=== PATIENT | male | born 1965 | race African-American/Black ===

== ENCOUNTER 2020-02-27 12:06 | Outpatient (CLI) | payer MEDICARE ==
--- NOTE | 2020-02-27 14:13 | CT ---
CT ABDOMEN ANDPELVIS PERFORMED WITH CONTRAST ENHANCEMENT: 02/27/20 HISTORY: Patient with abdominal cyst or knot. Has a peritoneal dialysis catheter. Left lower quadrant abdomina l mass. COMPARISON: Noncontrast CT of 02/09/15 which is the most recent exam available for comparison. The lung bases are clear. The liver, spleen, pancreas, and gallbladder regions appear unremarkable. Gallbladder is mildly diste nded. Right and left adrenal glands are normal. The right and left kidneys show tiny hypodensities statisti thierno most likely small cysts. What appears to be some parapelvic cyst changes also present. No obstr uction. Kidneys are borderline small. No significant periaortic or mesenteric adenopathy. CT OF PELVIS PERFORMED WITHOUT CONTRAST ENHANCEMENT: Peritoneal dialysis catheter is present. There is some inflammatory change which are just medial to t he level of the catheter within the subcutaneous fat. There is no defined fluid collection or evidenc e for an abscess. Arthritic changes of the spine are noted. IMPRESSION: Peritoneal dialysis catheter. There is some induration inflammatory change to the soft tissues just m edial to the catheter. These changes extend to the skin surface and may represent a site of drainage. No defined fluid collection or abscess. POS: [facility]
== END 2020-02-27 12:07 | disposition home or self-care (01) ==
LOC: SCSCT 12:06
PROVIDERS: ATTEND Surgery
DX: R19.04 Left lower quadrant abdominal swelling, mass and lump (principal); T82.7XXA Infection and inflammatory reaction due to other cardiac and vascular devices, implants and grafts, initial encounter
CPT/HCPCS: 74177

== ENCOUNTER 2020-08-06 05:36 | Day surgery (SDC) | payer MEDICARE, OTHER ==
[2020-08-05 12:41] VITALS: BMI 35.7
[2020-08-06] MEDS ORDERED: Lidocaine 1% w/Epinephrine 1:100K 20 ML VIAL ONE (06:47)
[2020-08-06] MEDS ORDERED: Bupivacaine 0.25% HCL 30 ML VIAL ONE (06:47)
[2020-08-06 07:00] LABS: Anion Gap 17 mmol/L (10-20); BUN (Urea Nitrogen) 58 mg/dL (8.4-25.7); Calc. Creatinine Clearance 6 mL/min (70-130); Calcium 8.7 mg/dL (7.8-10.44); Carbon Dioxide 28 mmol/L (22-29); Chloride 101 mmol/L (98-107); Glucose 95 mg/dL (70-105); Potassium 4.4 mmol/L (3.5-5.1); Sodium 142 mmol/L (136-145)
[2020-08-06] MEDS ORDERED: Fentanyl 100 MCG/2 ML VIAL ONE (07:15)
[2020-08-06] MEDS ORDERED: PHENYLEPHRINE-NS 100 MCG/ML 10 ML SYRINGE ONE (07:59)
[2020-08-06] MEDS ORDERED: ePHEDrine 50 MG/ML VIAL ONE (07:59)
[2020-08-06] MEDS ORDERED: Lidocaine 1% PF 5 ML VIAL ONE (07:59)
[2020-08-06] MEDS ORDERED: PROPOFOL 200 MG/20 ML VIAL ONE (07:59)
[2020-08-06] MEDS ORDERED: Dexamethasone 20 MG/5 ML VIAL ONE (07:59)
[2020-08-06] MEDS ORDERED: Ondansetron PF 4 MG/2 ML Vial ONE (07:59)
[2020-08-06] MEDS ORDERED: Rocuronium Bromide 10 MG/ML (10ML VIAL) ONE (07:59)
[2020-08-06] MEDS ORDERED: Glycopyrrolate 0.2 MG/ML 5 ML SYRINGE ONE (07:59)
[2020-08-06] MEDS ORDERED: Heparin 10,000 UNITS/ 10 ML VIAL ONE (08:33)
== END 2020-08-06 13:00 | disposition home or self-care (01) ==
LOC: SDC 05:36
PROVIDERS: ATTEND Surgery
PROC: 0WHG43Z Insertion of Infusion Device into Peritoneal Cavity, Percutaneous Endoscopic Approach (ICD-10-PCS; principal; 2020-08-06)
PROC: 0WQF4ZZ Repair Abdominal Wall, Percutaneous Endoscopic Approach (ICD-10-PCS; 2020-08-06)
PROC: 0HB7XZZ Excision of Abdomen Skin, External Approach (ICD-10-PCS; 2020-08-06)
PROC: 0WPGX3Z Removal of Infusion Device from Peritoneal Cavity, External Approach (ICD-10-PCS; 2020-08-06)
DX: K42.9 Umbilical hernia without obstruction or gangrene (principal); T85.611A Breakdown (mechanical) of intraperitoneal dialysis catheter, initial encounter; I12.9 Hypertensive chronic kidney disease with stage 1 through stage 4 chronic kidney disease, or unspecified chronic kidney disease; N18.9 Chronic kidney disease, unspecified; L91.8 Other hypertrophic disorders of the skin; M19.90 Unspecified osteoarthritis, unspecified site; Z79.82 Long term (current) use of aspirin; Z79.899 Other long term (current) drug therapy; Z99.2 Dependence on renal dialysis
CPT/HCPCS: 36415; 80048; J0690; J1100; J1644; J2405; J2704; J3010; J3490; S0020

== ENCOUNTER 2020-08-09 18:45 | Outpatient (CLI) | payer MEDICARE ==
[2020-08-04 14:36] LABS: #Basophils 0.1 10x3/uL (0.0-0.2); #Eosinphils 0.6 10x3/uL (0.0-0.5); #Monocytes 1.2 10x3/uL (0.0-1.1); #Neutrophils 7.5 10x3/uL (1.5-8.4); %Basophils 0.4 % (0.0-2.0); %Eosinophils 5.3 % (0.0-6.0); %Lymphocytes 18.7 % (18.0-47.0); %Monocytes 10.6 % (0.0-10.0); %Neutrophils 64.4 % (40.0-75.0); Hemoglobin 8.7 g/dL (13.5-17.5); Mean Corpuscular HGB CONC 30.1 g/dL (32.0-36.0); Mean Corpuscular Hemoglobin 28.3 pg (27.0-33.0); Mean Corpuscular Volume 94.1 fl (81.2-95.1); Mean Platelet Volume 12.6 fl (7.4-10.4); Platelet Count 190 10x3/uL (150-450); RBC Distribution Width 20.7 % (11.5-14.5); Red Blood Cell (RBC) Count 3.07 10x6/uL (4.32-5.72); White Blood Cell (WBC) Count 11.7 10x3/uL (3.5-10.5)
[2020-08-10 13:28] LABS: SARS-CoV-2 PCR by NAA Indeterminate (NotDetected)
== END 2020-08-09 18:46 | disposition home or self-care (01) ==
LOC: LABBT 18:45
PROVIDERS: ATTEND Surgery
DX: Z01.818 Encounter for other preprocedural examination (principal); T85.611A Breakdown (mechanical) of intraperitoneal dialysis catheter, initial encounter; Z20.822 Contact with and (suspected) exposure to COVID-19
CPT/HCPCS: 85025; 87635; 93005; 93010; U0003; U0005

== ENCOUNTER 2020-08-10 16:06 | Day surgery (SDC) | payer MEDICARE, OTHER ==
[2020-08-09 16:45] VITALS: BMI 34.2
[2020-08-10] MEDS ORDERED: Bupivacaine 0.25% HCL 30 ML VIAL ONE (16:59)
[2020-08-10] MEDS ORDERED: Lidocaine 2% PF 5 ML VIAL ONE (16:59)
[2020-08-10] MEDS ORDERED: Sodium Chloride 0.9% 20 ML ONE (16:59)
[2020-08-10] MEDS ORDERED: Lidocaine 1% w/Epinephrine 1:100K 20 ML VIAL ONE (16:59)
[2020-08-10] MEDS ORDERED: Heparin 10,000 UNITS/ 10 ML VIAL ONE (16:59)
[2020-08-10] MEDS ORDERED: Midazolam HCl 2 mg/2 ml Vial ONE (17:01)
[2020-08-10] MEDS ORDERED: Fentanyl 100 MCG/2 ML VIAL ONE (17:01)
[2020-08-10 17:14] LABS: #Basophils 0.1 thou/uL (0.0-0.2); #Eosinphils 0.5 thou/uL (0.0-0.7); #Lymphocytes 1.1 thou/uL (1.20-3.40); %Basophils 0.6 % (0.0-1.0); %Eosinophils 4.3 % (0.0-10.0); %Lymphocytes 10.6 % (21.0-51.0); %Monocytes 9.5 % (0.0-10.0); %Neutrophils 75.1 % (42.0-75.0); Hemoglobin 8.2 g/dL (14.0-18.0); Mean Corpuscular HGB CONC 32.9 g/dL (32.0-36.0); Mean Corpuscular Hemoglobin 30.1 pg (27.0-31.0); Mean Corpuscular Volume 91.6 fL (78.0-98.0); Mean Platelet Volume 8.6 fL (7.4-10.4); Platelet Count 202 thou/uL (130-400); RBC Distribution Width 19.4 % (11.5-14.5); Red Blood Cell (RBC) Count 2.74 mill/uL (4.70-6.10); White Blood Cell (WBC) Count 10.7 thou/uL (4.8-10.8)
[2020-08-10 17:33] LABS: Anion Gap 32 mmol/L (10-20); Calcium 8.6 mg/dL (7.8-10.44); Carbon Dioxide 14 mmol/L (22-29); Chloride 99 mmol/L (98-107); Glucose 87 mg/dL (70-105); Potassium 6.5 mmol/L (3.5-5.1); Sodium 138 mmol/L (136-145)
[2020-08-10] MEDS ORDERED: Ondansetron PF 4 MG/2 ML Vial ONE (17:35)
[2020-08-10 17:52] LABS: BUN (Urea Nitrogen) 128 mg/dL (8.4-25.7)
[2020-08-10 18:11] LABS: Calc. Creatinine Clearance 5 mL/min (70-130)
== END 2020-08-10 19:23 | disposition home or self-care (01) ==
LOC: SDC 16:06
PROVIDERS: ATTEND Surgery
PROC: 02HV33Z Insertion of Infusion Device into Superior Vena Cava, Percutaneous Approach (ICD-10-PCS; principal; 2020-08-10)
DX: I12.0 Hypertensive chronic kidney disease with stage 5 chronic kidney disease or end stage renal disease (principal); N18.6 End stage renal disease; M19.90 Unspecified osteoarthritis, unspecified site; Z79.82 Long term (current) use of aspirin; Z79.899 Other long term (current) drug therapy; Z99.2 Dependence on renal dialysis
CPT/HCPCS: 36416; 71045; 80048; 85025; C1752; J0690; J1644; J2001; J2250; J2405; J3010; S0020

== ENCOUNTER 2020-09-10 12:59 | Inpatient (IN) | payer MEDICARE ==
[~2020-09-10 12:59] MED LIST: Iopamidol-370 76% 500 ML 1 ML ONE
[2020-09-10] MEDS ORDERED: cefTRIAXone\\ROCEPHIN 2 GM VIAL ONE (14:12)
[2020-09-10 14:39] LABS: Hemoglobin 7.9 g/dL (14.0-18.0); Mean Corpuscular HGB CONC 31.7 g/dL (32.0-36.0); Mean Corpuscular Hemoglobin 29.5 pg (27.0-31.0); Mean Corpuscular Volume 92.9 fL (78.0-98.0); Mean Platelet Volume 7.8 fL (7.4-10.4); Platelet Count 467 thou/uL (130-400); RBC Distribution Width 18.3 % (11.5-14.5); Red Blood Cell (RBC) Count 2.68 mill/uL (4.70-6.10); White Blood Cell (WBC) Count 40.2 thou/uL (4.8-10.8)
[2020-09-10 15:01] LABS: Anisocytosis SLIGHT = 6-15 cells (100X) (0-5/hpf); Band 20 % (5-11); Hypochromia SLIGHT = 6-15 cells (100X) (0-5/hpf); Lymphocytes 6 % (21-51); MDiff Complete? YES; Metamyelocyte 3 % (0-0); Monocytes 5 % (0-10); Myelocyte 2 % (0-0); Neutrophil 64 % (42-75); Platelet Morphology Comment Appears Increased; Polychromasia MODERATE = 3-4 cells (100X) (0-2/hpf); Stomatocytes SLIGHT = 2-5 cells (100X) (0-1/hpf); Target Cells MODERATE= 6-15 cells (100X) (0-1/hpf)
[2020-09-10 15:38] LABS: ALT (SGPT) 16 U/L (8-55); AST (SGOT) 54 U/L (5-34); Albumin 2.5 g/dL (3.5-5.0); Alkaline Phosphatase 121 U/L (40-110); Anion Gap 20 mmol/L (10-20); BUN (Urea Nitrogen) 47 mg/dL (8.4-25.7); Bilirubin, Total 1.2 mg/dL (0.2-1.2); Calc. Creatinine Clearance 0 mL/min (70-130); Calcium 9.9 mg/dL (7.8-10.44); Carbon Dioxide 23 mmol/L (22-29); Chloride 96 mmol/L (98-107); Globulin 4.7 g/dL (2.4-3.5); Glucose 109 mg/dL (70-105); Potassium 4.2 mmol/L (3.5-5.1); Protein, Total 7.2 g/dL (6.0-8.3); Sodium 135 mmol/L (136-145)
[2020-09-10] MEDS ORDERED: Vancomycin 1 GM/200 ML BAG ONE (16:16)
[2020-09-10] MEDS ORDERED: Acetaminophen 650 MG Suppository PR PRN (16:38)
[2020-09-10] MEDS ORDERED: Vancomycin 1 GM in Premix Bag 1 BAG IVPB SCH ×3 (16:45→23:00)
[2020-09-10 17:08] LABS: White Blood Cell (WBC) Count 41.2 thou/uL (4.8-10.8)
[2020-09-10 17:09] LABS: Hemoglobin 6.8 g/dL (14.0-18.0); Mean Corpuscular Hemoglobin 27.4 pg (27.0-31.0); Mean Corpuscular Volume 91.7 fL (78.0-98.0); Red Blood Cell (RBC) Count 2.48 mill/uL (4.70-6.10)
[2020-09-10 17:31] LABS: Mean Corpuscular HGB CONC 29.9 g/dL (32.0-36.0); Mean Platelet Volume 7.6 fL (7.4-10.4); Platelet Count 472 thou/uL (130-400); RBC Distribution Width 18.2 % (11.5-14.5)
[2020-09-10 17:49] LABS: MDiff Complete? YES
[2020-09-10 17:50] LABS: Anisocytosis SLIGHT = 6-15 cells (100X) (0-5/hpf); Band 34 % (5-11); Eosinophils 1 % (0-10); Hypochromia MODERATE=16-30 cells (100X) (0-5/hpf); Lymphocytes 1 % (21-51); Metamyelocyte 3 % (0-0); Monocytes 13 % (0-10); Myelocyte 4 % (0-0); Neutrophil 41 % (42-75); Platelet Morphology Comment Appears Increased; Polychromasia MODERATE = 3-4 cells (100X) (0-2/hpf); Reactive Lymphocytes 3 % (0-10); Target Cells MODERATE= 6-15 cells (100X) (0-1/hpf); Tear Drops SLIGHT = 2-5 cells (100X) (0-1/hpf)
[2020-09-10 17:51] LABS: SARS-CoV-2 NAA Rapid Test Not Detected (NotDetected)
[2020-09-10] MEDS ORDERED: Piperacillin/Tazobactam 4.5 GM in Sodium Chloride 0.9% 100 ML IVPB SCH (18:00)
[2020-09-10] MEDS ORDERED: Norepinephrine 8 MG/0.9% NS 250 ML IVPB PRN (18:01)
[2020-09-10] MEDS ORDERED: Norepinephrine 8 MG/0.9% NS 250 ML ONE (18:10)
[2020-09-10] MEDS: Lactated Ringer's 1,000 ML IV SCH (21:07)
[2020-09-10] MEDS: Heparin 5,000 UNITS/ML VIAL SC SCH (21:07)
[2020-09-10] MEDS: Pantoprazole 40 MG VIAL IVP SCH (21:08)
[2020-09-10] MEDS: levETIRAcetam in NS 500 MG in Premix Bag 1 BAG IVPB SCH (21:32)
[2020-09-10] MEDS ORDERED: Vancomycin HCl 750 MG in Sodium Chloride 0.9% 250 ML 250 ML IVPB SCH (22:00)
[2020-09-10] MEDS ORDERED: HOLD VANCOMYCIN FOR LEVEL >20 FS SCH (22:00)
[2020-09-10] MEDS ORDERED: Vancomycin HCl 1.5 GM in Sodium Chloride 0.9% 250 ML 300 ML IVPB SCH (22:00)
[2020-09-10] MEDS ORDERED: Vancomycin HCl 1.25 GM in Sodium Chloride 0.9% 250 ML 250 ML IVPB SCH (22:00)
[2020-09-10] MEDS ORDERED: Merrem (PEDI) 500 MG in Syringe 0 ML IVPB SCH (22:00)
[2020-09-10 23:08] LABS: CKMB 0.7 ng/mL (0-6.6)
[2020-09-10] MEDS: Meropenem 500 MG in Sodium Chloride 0.9% 100 ML IVPB SCH (23:45)
[2020-09-11 04:03] LABS: Anion Gap 15 mmol/L (10-20); BUN (Urea Nitrogen) 54 mg/dL (8.4-25.7); Calc. Creatinine Clearance 13 mL/min (70-130); Calcium 9.7 mg/dL (7.8-10.44); Carbon Dioxide 27 mmol/L (22-29); Chloride 96 mmol/L (98-107); Glucose 115 mg/dL (70-105); Potassium 4.2 mmol/L (3.5-5.1); Sodium 134 mmol/L (136-145)
[2020-09-11 04:24] LABS: Band 17 % (5-11); Eosinophils 2 % (0-10); Hemoglobin 6.6 g/dL (14.0-18.0); Lymphocytes 18 % (21-51); MDiff Complete? YES; Mean Corpuscular HGB CONC 30.4 g/dL (32.0-36.0); Mean Corpuscular Volume 92.2 fL (78.0-98.0); Mean Platelet Volume 7.5 fL (7.4-10.4); Monocytes 4 % (0-10); Neutrophil 59 % (42-75); Nucleated RBC 1 % (0); Platelet Count 465 thou/uL (130-400); RBC Distribution Width 18.4 % (11.5-14.5); Red Blood Cell (RBC) Count 2.36 mill/uL (4.70-6.10)
[2020-09-11] MEDS: Lactated Ringer's 1,000 ML IV SCH ×3 (05:13→17:59)
[2020-09-11] MEDS: levETIRAcetam in NS 500 MG in Premix Bag 1 BAG IVPB SCH ×3 (09:00→20:53)
[2020-09-11] MEDS: Heparin 5,000 UNITS/ML VIAL SC SCH ×2 (09:00→20:53)
[2020-09-11 09:36] LABS: Vancomycin, Random 23.8 ug/mL (See Comment)
[2020-09-11 09:50] LABS: HBSAg Index 0.19 S/CO (0-0.99); Hep B Surf Ag Non-Reactive S/CO (NonReactive)
[2020-09-11] MEDS: Meropenem 500 MG in Sodium Chloride 0.9% 100 ML IVPB SCH ×3 (10:00→20:53)
[2020-09-11] MEDS ORDERED: Bacitracin Zinc Ointment 30 gm TUBE ONE (10:00)
[2020-09-11] MEDS ORDERED: Heparin 10,000 UNITS/ 10 ML VIAL ONE (11:31)
[2020-09-11] MEDS: Pantoprazole 40 MG VIAL IVP SCH ×2 (11:53→20:55)
[2020-09-11] MEDS ORDERED: Fentanyl 100 MCG/2 ML VIAL ONE (15:03)
[2020-09-11] MEDS ORDERED: ePHEDrine Sulfate 50 MG/10 ML VIAL ONE (15:27)
[2020-09-11] MEDS ORDERED: PHENYLEPHRINE-NS 100 MCG/ML 10 ML SYRINGE ONE (15:27)
[2020-09-11] MEDS ORDERED: PROPOFOL 200 MG/20 ML VIAL ONE (15:27)
[2020-09-11] MEDS ORDERED: Lidocaine 1% PF 5 ML VIAL ONE (15:27)
[2020-09-11] MEDS ORDERED: Ondansetron PF 4 MG/2 ML Vial ONE (15:27)
[2020-09-11] MEDS ORDERED: EPINEPHrine 1 MG/ML AMP ONE (15:36)
[2020-09-11] MEDS ORDERED: Bupivacaine 0.25% HCL 30 ML VIAL ONE (15:36)
[2020-09-11] MEDS ORDERED: EPINEPHrine 1 MG/10 ML Abboject SYRINGE ONE (15:36)
[2020-09-11] MEDS ORDERED: Phenylephrine 0.25% Nasal Spray 15 ML BOT ONE (16:16)
[2020-09-11] MEDS ORDERED: Piperacillin/Tazobactam 3.375 GM VIAL ONE (18:59)
[2020-09-11 22:47] LABS: Vancomycin, Random 20.9 ug/mL (See Comment)
[2020-09-12] MEDS: Pantoprazole 40 MG VIAL IVP SCH ×2 (09:00→20:49)
[2020-09-12] MEDS: Heparin 5,000 UNITS/ML VIAL SC SCH ×2 (09:00→20:49)
[2020-09-12] MEDS: Meropenem 500 MG in Sodium Chloride 0.9% 100 ML IVPB SCH ×2 (09:01→20:50)
[2020-09-12] MEDS: levETIRAcetam in NS 500 MG in Premix Bag 1 BAG IVPB SCH ×2 (09:01→20:49)
[2020-09-12 09:48] LABS: Band 28 % (5-11); Hemoglobin 8.1 g/dL (14.0-18.0); Lymphocytes 5 % (21-51); MDiff Complete? YES; Mean Corpuscular HGB CONC 29.6 g/dL (32.0-36.0); Mean Corpuscular Hemoglobin 27.3 pg (27.0-31.0); Mean Corpuscular Volume 92.3 fL (78.0-98.0); Metamyelocyte 2 % (0-0); Monocytes 7 % (0-10); Myelocyte 1 % (0-0); Neutrophil 56 % (42-75); Platelet Count 393 thou/uL (130-400); RBC Distribution Width 18.2 % (11.5-14.5); Reactive Lymphocytes 1 % (0-10); Red Blood Cell (RBC) Count 2.97 mill/uL (4.70-6.10); White Blood Cell (WBC) Count 31.9 thou/uL (4.8-10.8)
[2020-09-12 09:56] LABS: Anion Gap 14 mmol/L (10-20); BUN (Urea Nitrogen) 35 mg/dL (8.4-25.7); Calc. Creatinine Clearance 17 mL/min (70-130); Calcium 8.9 mg/dL (7.8-10.44); Carbon Dioxide 28 mmol/L (22-29); Chloride 99 mmol/L (98-107); Glucose 94 mg/dL (70-105); Potassium 4.1 mmol/L (3.5-5.1); Sodium 137 mmol/L (136-145)
[2020-09-12] MEDS: EPOETIN ALFA-EPBX (ESRD) 4,000 UNIT/ML VIAL SC SCH (17:50)
[2020-09-13 04:49] LABS: Lactic Acid 0.8 mmol/L (0.5-2.2)
[2020-09-13 04:54] LABS: Anion Gap 17 mmol/L (10-20); BUN (Urea Nitrogen) 45 mg/dL (8.4-25.7); Calc. Creatinine Clearance 13 mL/min (70-130); Calcium 8.8 mg/dL (7.8-10.44); Carbon Dioxide 25 mmol/L (22-29); Chloride 99 mmol/L (98-107); Glucose 88 mg/dL (70-105); Magnesium 1.8 mg/dL (1.6-2.6); Potassium 4.9 mmol/L (3.5-5.1); Sodium 136 mmol/L (136-145)
[2020-09-13 05:55] LABS: Band 20 % (5-11); Eosinophils 1 % (0-10); Hemoglobin 7.8 g/dL (14.0-18.0); Lymphocytes 5 % (21-51); MDiff Complete? YES; Mean Corpuscular HGB CONC 30.9 g/dL (32.0-36.0); Mean Corpuscular Hemoglobin 28.3 pg (27.0-31.0); Mean Corpuscular Volume 91.4 fL (78.0-98.0); Monocytes 4 % (0-10); Myelocyte 2 % (0-0); Neutrophil 68 % (42-75); Platelet Count 369 thou/uL (130-400); RBC Distribution Width 17.9 % (11.5-14.5); Red Blood Cell (RBC) Count 2.75 mill/uL (4.70-6.10); White Blood Cell (WBC) Count 32.1 thou/uL (4.8-10.8)
[2020-09-13] MEDS: Pantoprazole 40 MG VIAL IVP SCH ×2 (08:28→20:27)
[2020-09-13] MEDS: levETIRAcetam in NS 500 MG in Premix Bag 1 BAG IVPB SCH ×2 (08:28→20:27)
[2020-09-13] MEDS: Heparin 5,000 UNITS/ML VIAL SC SCH ×2 (08:29→20:27)
[2020-09-13] MEDS: Meropenem 500 MG in Sodium Chloride 0.9% 100 ML IVPB SCH ×2 (09:02→20:28)
[2020-09-13 09:09] LABS: Vancomycin, Random 18.6 ug/mL (See Comment)
[2020-09-14 05:47] LABS: Anion Gap 18 mmol/L (10-20); BUN (Urea Nitrogen) 56 mg/dL (8.4-25.7); Calc. Creatinine Clearance 11 mL/min (70-130); Carbon Dioxide 24 mmol/L (22-29); Chloride 101 mmol/L (98-107); Glucose 93 mg/dL (70-105); Potassium 4.5 mmol/L (3.5-5.1); Sodium 138 mmol/L (136-145)
[2020-09-14 05:50] LABS: Band 4 % (5-11); Eosinophils 1 % (0-10); Hemoglobin 7.8 g/dL (14.0-18.0); Lymphocytes 8 % (21-51); MDiff Complete? YES; Mean Corpuscular Volume 90.6 fL (78.0-98.0); Mean Platelet Volume 7.7 fL (7.4-10.4); Monocytes 9 % (0-10); Myelocyte 1 % (0-0); Neutrophil 77 % (42-75); Platelet Count 376 thou/uL (130-400); RBC Distribution Width 17.9 % (11.5-14.5); Red Blood Cell (RBC) Count 2.78 mill/uL (4.70-6.10); Target Cells SLIGHT = 2-5 cells (100X) (0-1/hpf); White Blood Cell (WBC) Count 29.9 thou/uL (4.8-10.8)
[2020-09-14 09:43] LABS: Vancomycin, Random 17.5 ug/mL (See Comment)
[2020-09-14] MEDS: levETIRAcetam in NS 500 MG in Premix Bag 1 BAG IVPB SCH ×2 (09:49→21:36)
[2020-09-14] MEDS: Pantoprazole 40 MG VIAL IVP SCH ×2 (09:50→21:35)
[2020-09-14] MEDS: Heparin 5,000 UNITS/ML VIAL SC SCH ×2 (09:50→21:35)
[2020-09-14] MEDS ORDERED: Heparin 10,000 UNITS/ 10 ML VIAL ONE (11:48)
[2020-09-14] MEDS: Meropenem 500 MG in Sodium Chloride 0.9% 100 ML IVPB SCH ×2 (14:56→21:36)
[2020-09-15 05:23] LABS: Anion Gap 14 mmol/L (10-20); BUN (Urea Nitrogen) 31 mg/dL (8.4-25.7); Calc. Creatinine Clearance 15 mL/min (70-130); Calcium 8.3 mg/dL (7.8-10.44); Carbon Dioxide 26 mmol/L (22-29); Chloride 101 mmol/L (98-107); Glucose 91 mg/dL (70-105); Potassium 3.6 mmol/L (3.5-5.1); Sodium 137 mmol/L (136-145)
[2020-09-15 06:43] LABS: Band 7 % (5-11); Eosinophils 3 % (0-10); Hemoglobin 6.9 g/dL (14.0-18.0); Lymphocytes 7 % (21-51); MDiff Complete? YES; Mean Corpuscular HGB CONC 30.2 g/dL (32.0-36.0); Mean Corpuscular Hemoglobin 27.3 pg (27.0-31.0); Mean Corpuscular Volume 90.6 fL (78.0-98.0); Mean Platelet Volume 7.8 fL (7.4-10.4); Monocytes 8 % (0-10); Myelocyte 4 % (0-0); Neutrophil 71 % (42-75); Platelet Count 346 thou/uL (130-400); RBC Distribution Width 17.5 % (11.5-14.5); Red Blood Cell (RBC) Count 2.53 mill/uL (4.70-6.10); White Blood Cell (WBC) Count 25.3 thou/uL (4.8-10.8)
[2020-09-15] MEDS: levETIRAcetam in NS 500 MG in Premix Bag 1 BAG IVPB SCH (08:46)
[2020-09-15] MEDS: Meropenem 500 MG in Sodium Chloride 0.9% 100 ML IVPB SCH ×2 (08:47→20:56)
[2020-09-15] MEDS: Pantoprazole 40 MG VIAL IVP SCH (08:47)
[2020-09-15] MEDS: Heparin 5,000 UNITS/ML VIAL SC SCH ×2 (08:47→20:51)
[2020-09-15 10:16] LABS: Fungus Stain Final report (.)
[2020-09-15] MEDS ORDERED: cloNIDine 0.1 MG TAB PO PRN (17:18)
[2020-09-15] MEDS ORDERED: Senokot 8.6 MG TAB PO PRN (17:24)
[2020-09-15] MEDS: Mometasone 100 MCG/Formoterol 5 MCG 120 PUFF INHALER INH SCH (18:45)
[2020-09-15] MEDS: Calcium Carbonate 500 MG ChewTAB PO PRN (20:51)
[2020-09-15] MEDS: Carvedilol 6.25 MG TAB PO SCH (20:51)
[2020-09-16 04:58] LABS: #Basophils 0.1 thou/uL (0.0-0.2); #Eosinphils 0.6 thou/uL (0.0-0.7); #Lymphocytes 2.3 thou/uL (1.20-3.40); #Monocytes 2.6 thou/uL (0.11-0.59); #Neutrophils 18.9 thou/uL (1.40-6.50); %Basophils 0.3 % (0.0-1.0); %Eosinophils 2.6 % (0.0-10.0); %Lymphocytes 9.5 % (21.0-51.0); %Monocytes 10.6 % (0.0-10.0); %Neutrophils 76.9 % (42.0-75.0); Hemoglobin 7.9 g/dL (14.0-18.0); Mean Corpuscular HGB CONC 31.1 g/dL (32.0-36.0); Mean Corpuscular Hemoglobin 28.1 pg (27.0-31.0); Mean Corpuscular Volume 90.4 fL (78.0-98.0); Mean Platelet Volume 7.8 fL (7.4-10.4); Platelet Count 366 thou/uL (130-400); Red Blood Cell (RBC) Count 2.82 mill/uL (4.70-6.10); White Blood Cell (WBC) Count 24.6 thou/uL (4.8-10.8)
[2020-09-16 05:20] LABS: Anion Gap 18 mmol/L (10-20); BUN (Urea Nitrogen) 44 mg/dL (8.4-25.7); Calc. Creatinine Clearance 11 mL/min (70-130); Calcium 8.6 mg/dL (7.8-10.44); Carbon Dioxide 25 mmol/L (22-29); Chloride 99 mmol/L (98-107); Glucose 81 mg/dL (70-105); Potassium 4.1 mmol/L (3.5-5.1); Sodium 138 mmol/L (136-145)
[2020-09-16] MEDS: Mometasone 100 MCG/Formoterol 5 MCG 120 PUFF INHALER INH SCH ×2 (08:06→18:49)
[2020-09-16 08:54] LABS: Vancomycin, Trough 19.6 ug/mL
[2020-09-16] MEDS ORDERED: Vancomycin HCl 750 MG in Sodium Chloride 0.9% 250 ML 250 ML IVPB SCH (09:00)
[2020-09-16] MEDS: Heparin 5,000 UNITS/ML VIAL SC SCH ×2 (09:22→21:07)
[2020-09-16] MEDS: Aspirin 81 mg Enteric Coated Tablet PO SCH (12:55)
[2020-09-16] MEDS: Calcitriol 0.25 MCG CAP PO SCH (12:55)
[2020-09-16] MEDS: Folic Acid/Vit B Comp W-C PO SCH (12:55)
[2020-09-16] MEDS: Carvedilol 6.25 MG TAB PO SCH ×2 (12:55→21:07)
[2020-09-16] MEDS: Meropenem 500 MG in Sodium Chloride 0.9% 100 ML IVPB SCH ×2 (12:56→21:11)
[2020-09-16] MEDS ORDERED: Heparin 10,000 UNITS/ 10 ML VIAL ONE (14:53)
[2020-09-16] MEDS: Calcium Carbonate 500 MG ChewTAB PO PRN (17:40)
[2020-09-16] MEDS: Acetaminophen 325 MG TAB PO PRN (21:06)
[2020-09-17] MEDS: Acetaminophen 325 MG TAB PO PRN (04:21)
[2020-09-17 04:36] LABS: #Basophils 0.1 thou/uL (0.0-0.2); #Eosinphils 0.4 thou/uL (0.0-0.7); #Lymphocytes 2.4 thou/uL (1.20-3.40); #Monocytes 2.4 thou/uL (0.11-0.59); %Basophils 0.3 % (0.0-1.0); %Eosinophils 1.7 % (0.0-10.0); %Monocytes 9.7 % (0.0-10.0); %Neutrophils 78.3 % (42.0-75.0); Hemoglobin 8.8 g/dL (14.0-18.0); Mean Corpuscular HGB CONC 30.4 g/dL (32.0-36.0); Mean Corpuscular Hemoglobin 27.5 pg (27.0-31.0); Mean Corpuscular Volume 90.4 fL (78.0-98.0); Mean Platelet Volume 8.4 fL (7.4-10.4); Platelet Count 372 thou/uL (130-400); RBC Distribution Width 17.2 % (11.5-14.5); Red Blood Cell (RBC) Count 3.19 mill/uL (4.70-6.10); White Blood Cell (WBC) Count 24.2 thou/uL (4.8-10.8)
[2020-09-17 04:57] LABS: Anion Gap 17 mmol/L (10-20); BUN (Urea Nitrogen) 30 mg/dL (8.4-25.7); Calc. Creatinine Clearance 14 mL/min (70-130); Carbon Dioxide 28 mmol/L (22-29); Chloride 98 mmol/L (98-107); Glucose 82 mg/dL (70-105); Potassium 3.9 mmol/L (3.5-5.1); Sodium 139 mmol/L (136-145)
[2020-09-17] MEDS: Mometasone 100 MCG/Formoterol 5 MCG 120 PUFF INHALER INH SCH ×2 (07:30→19:07)
[2020-09-17] MEDS ORDERED: Sodium Chloride 0.9% 10 ML ONE (09:05)
[2020-09-17] MEDS ORDERED: Morphine 2 MG/ML VIAL ONE (09:05)
[2020-09-17] MEDS: Carvedilol 6.25 MG TAB PO SCH ×2 (09:59→20:21)
[2020-09-17] MEDS: Folic Acid/Vit B Comp W-C PO SCH (09:59)
[2020-09-17] MEDS: levETIRAcetam 500 MG TAB PO SCH (10:00)
[2020-09-17] MEDS: Aspirin 81 mg Enteric Coated Tablet PO SCH (10:00)
[2020-09-17] MEDS: Calcitriol 0.25 MCG CAP PO SCH (10:01)
[2020-09-17] MEDS: Heparin 5,000 UNITS/ML VIAL SC SCH ×2 (10:01→20:21)
[2020-09-17] MEDS: Meropenem 500 MG in Sodium Chloride 0.9% 100 ML IVPB SCH ×2 (10:11→21:39)
[2020-09-18 04:49] LABS: #Basophils 0.1 thou/uL (0.0-0.2); #Eosinphils 0.2 thou/uL (0.0-0.7); #Lymphocytes 2.3 thou/uL (1.20-3.40); #Monocytes 2.3 thou/uL (0.11-0.59); %Basophils 0.4 % (0.0-1.0); %Eosinophils 1.1 % (0.0-10.0); %Monocytes 10.1 % (0.0-10.0); %Neutrophils 78.5 % (42.0-75.0); Mean Corpuscular HGB CONC 30.4 g/dL (32.0-36.0); Mean Corpuscular Hemoglobin 27.8 pg (27.0-31.0); Mean Corpuscular Volume 91.3 fL (78.0-98.0); Platelet Count 394 thou/uL (130-400); RBC Distribution Width 17.2 % (11.5-14.5); Red Blood Cell (RBC) Count 2.89 mill/uL (4.70-6.10)
[2020-09-18 05:06] LABS: Vancomycin, Random 19.3 ug/mL (See Comment)
[2020-09-18 05:10] LABS: ALT (SGPT) 10 U/L (8-55); AST (SGOT) 71 U/L (5-34); Albumin 2.2 g/dL (3.5-5.0); Alkaline Phosphatase 138 U/L (40-110); Anion Gap 16 mmol/L (10-20); BUN (Urea Nitrogen) 44 mg/dL (8.4-25.7); Bilirubin, Total 0.9 mg/dL (0.2-1.2); Calc. Creatinine Clearance 11 mL/min (70-130); Carbon Dioxide 27 mmol/L (22-29); Chloride 98 mmol/L (98-107); Glucose 84 mg/dL (70-105); Potassium 4.3 mmol/L (3.5-5.1); Protein, Total 7.2 g/dL (6.0-8.3); Sodium 137 mmol/L (136-145)
[2020-09-18] MEDS ORDERED: Vancomycin HCl 750 MG in Sodium Chloride 0.9% 250 ML 250 ML IVPB SCH ×2 (06:00→10:30)
[2020-09-18] MEDS: Mometasone 100 MCG/Formoterol 5 MCG 120 PUFF INHALER INH SCH ×2 (07:01→20:24)
[2020-09-18] MEDS: Calcitriol 0.25 MCG CAP PO SCH (12:44)
[2020-09-18] MEDS: Heparin 5,000 UNITS/ML VIAL SC SCH ×2 (12:44→21:05)
[2020-09-18] MEDS: Carvedilol 6.25 MG TAB PO SCH ×2 (12:45→21:06)
[2020-09-18] MEDS: Folic Acid/Vit B Comp W-C PO SCH (12:45)
[2020-09-18] MEDS: Aspirin 81 mg Enteric Coated Tablet PO SCH (12:45)
[2020-09-18] MEDS: Meropenem 500 MG in Sodium Chloride 0.9% 100 ML IVPB SCH ×2 (12:46→21:06)
[2020-09-18] MEDS ORDERED: Heparin 10,000 UNITS/ 10 ML VIAL ONE (14:43)
[2020-09-18] MEDS: Acetaminophen 325 MG TAB PO PRN (21:05)
[2020-09-19 04:30] LABS: #Basophils 0.1 thou/uL (0.0-0.2); #Eosinphils 0.2 thou/uL (0.0-0.7); #Lymphocytes 2.2 thou/uL (1.20-3.40); #Monocytes 2.4 thou/uL (0.11-0.59); #Neutrophils 16.1 thou/uL (1.40-6.50); %Basophils 0.4 % (0.0-1.0); %Eosinophils 0.8 % (0.0-10.0); %Lymphocytes 10.7 % (21.0-51.0); %Monocytes 11.4 % (0.0-10.0); %Neutrophils 76.7 % (42.0-75.0); Hemoglobin 8.4 g/dL (14.0-18.0); Mean Corpuscular HGB CONC 30.3 g/dL (32.0-36.0); Mean Corpuscular Hemoglobin 27.6 pg (27.0-31.0); Mean Corpuscular Volume 90.9 fL (78.0-98.0); Mean Platelet Volume 7.7 fL (7.4-10.4); Platelet Count 378 thou/uL (130-400); RBC Distribution Width 17.1 % (11.5-14.5); Red Blood Cell (RBC) Count 3.03 mill/uL (4.70-6.10); White Blood Cell (WBC) Count 21.1 thou/uL (4.8-10.8)
[2020-09-19 04:53] LABS: ALT (SGPT) 9 U/L (8-55); AST (SGOT) 66 U/L (5-34); Albumin 2.3 g/dL (3.5-5.0); Alkaline Phosphatase 125 U/L (40-110); Anion Gap 14 mmol/L (10-20); BUN (Urea Nitrogen) 27 mg/dL (8.4-25.7); Bilirubin, Total 0.9 mg/dL (0.2-1.2); Calc. Creatinine Clearance 14 mL/min (70-130); Calcium 8.9 mg/dL (7.8-10.44); Carbon Dioxide 28 mmol/L (22-29); Chloride 99 mmol/L (98-107); Globulin 5.1 g/dL (2.4-3.5); Glucose 97 mg/dL (70-105); Potassium 3.7 mmol/L (3.5-5.1); Protein, Total 7.4 g/dL (6.0-8.3); Sodium 137 mmol/L (136-145)
[2020-09-19] MEDS: Mometasone 100 MCG/Formoterol 5 MCG 120 PUFF INHALER INH SCH ×2 (08:08→18:35)
[2020-09-19] MEDS: Heparin 5,000 UNITS/ML VIAL SC SCH ×2 (08:30→20:52)
[2020-09-19] MEDS: Aspirin 81 mg Enteric Coated Tablet PO SCH (08:31)
[2020-09-19] MEDS: Calcitriol 0.25 MCG CAP PO SCH (08:31)
[2020-09-19] MEDS: Carvedilol 6.25 MG TAB PO SCH ×2 (08:31→20:52)
[2020-09-19] MEDS: Folic Acid/Vit B Comp W-C PO SCH (08:31)
[2020-09-19] MEDS: Meropenem 500 MG in Sodium Chloride 0.9% 100 ML IVPB SCH ×2 (10:29→20:52)
[2020-09-19] MEDS ORDERED: Polyethylene Glycol 3350 17 GM Packet PO SCH (12:45)
[2020-09-19] MEDS: EPOETIN ALFA-EPBX (ESRD) 4,000 UNIT/ML VIAL SC SCH (16:19)
[2020-09-19] MEDS: Polyethylene Glycol 3350 17 GM Packet PO SCH (20:52)
[2020-09-20 04:53] LABS: Vancomycin, Random 24.6 ug/mL (See Comment)
[2020-09-20] MEDS: Mometasone 100 MCG/Formoterol 5 MCG 120 PUFF INHALER INH SCH ×2 (07:07→18:51)
[2020-09-20] MEDS: Meropenem 500 MG in Sodium Chloride 0.9% 100 ML IVPB SCH ×2 (08:19→20:47)
[2020-09-20] MEDS: Folic Acid/Vit B Comp W-C PO SCH (08:19)
[2020-09-20] MEDS: Heparin 5,000 UNITS/ML VIAL SC SCH ×2 (08:19→20:48)
[2020-09-20] MEDS: Carvedilol 6.25 MG TAB PO SCH ×2 (08:20→20:47)
[2020-09-20] MEDS: Calcitriol 0.25 MCG CAP PO SCH (08:20)
[2020-09-20] MEDS: Polyethylene Glycol 3350 17 GM Packet PO SCH ×2 (08:20→20:47)
[2020-09-20] MEDS: Aspirin 81 mg Enteric Coated Tablet PO SCH (08:20)
[2020-09-20] MEDS: levETIRAcetam 500 MG TAB PO SCH (08:20)
[2020-09-21 04:51] LABS: #Basophils 0.1 thou/uL (0.0-0.2); #Eosinphils 0.3 thou/uL (0.0-0.7); #Lymphocytes 2.2 thou/uL (1.20-3.40); #Monocytes 1.7 thou/uL (0.11-0.59); #Neutrophils 12.5 thou/uL (1.40-6.50); %Basophils 0.4 % (0.0-1.0); %Eosinophils 1.9 % (0.0-10.0); %Lymphocytes 13.1 % (21.0-51.0); %Monocytes 10.3 % (0.0-10.0); %Neutrophils 74.3 % (42.0-75.0); Hemoglobin 7.7 g/dL (14.0-18.0); Mean Corpuscular HGB CONC 30.9 g/dL (32.0-36.0); Mean Corpuscular Hemoglobin 27.8 pg (27.0-31.0); Mean Corpuscular Volume 90.1 fL (78.0-98.0); Mean Platelet Volume 8.9 fL (7.4-10.4); Platelet Count 344 thou/uL (130-400); RBC Distribution Width 17.4 % (11.5-14.5); Red Blood Cell (RBC) Count 2.77 mill/uL (4.70-6.10); White Blood Cell (WBC) Count 16.9 thou/uL (4.8-10.8)
[2020-09-21 05:17] LABS: Vancomycin, Random 22.4 ug/mL (See Comment)
[2020-09-21 05:19] LABS: Anion Gap 18 mmol/L (10-20); BUN (Urea Nitrogen) 45 mg/dL (8.4-25.7); Calc. Creatinine Clearance 9 mL/min (70-130); Calcium 9.3 mg/dL (7.8-10.44); Carbon Dioxide 22 mmol/L (22-29); Chloride 100 mmol/L (98-107); Glucose 86 mg/dL (70-105); Potassium 3.9 mmol/L (3.5-5.1); Sodium 136 mmol/L (136-145)
[2020-09-21] MEDS: Mometasone 100 MCG/Formoterol 5 MCG 120 PUFF INHALER INH SCH ×2 (06:46→19:05)
[2020-09-21] MEDS: Folic Acid/Vit B Comp W-C PO SCH (08:04)
[2020-09-21] MEDS: Calcitriol 0.25 MCG CAP PO SCH (08:04)
[2020-09-21] MEDS: Aspirin 81 mg Enteric Coated Tablet PO SCH (08:04)
[2020-09-21] MEDS: Polyethylene Glycol 3350 17 GM Packet PO SCH ×2 (08:05→21:31)
[2020-09-21] MEDS ORDERED: Heparin 10,000 UNITS/ 10 ML VIAL ONE (10:13)
[2020-09-21] MEDS: Carvedilol 6.25 MG TAB PO SCH ×2 (15:38→21:30)
[2020-09-21] MEDS: Heparin 5,000 UNITS/ML VIAL SC SCH ×2 (15:39→21:30)
[2020-09-21] MEDS: Meropenem 500 MG in Sodium Chloride 0.9% 100 ML IVPB SCH ×2 (15:39→21:31)
[2020-09-22 04:39] LABS: #Basophils 0.1 thou/uL (0.0-0.2); #Eosinphils 0.3 thou/uL (0.0-0.7); #Lymphocytes 2.2 thou/uL (1.20-3.40); #Monocytes 1.8 thou/uL (0.11-0.59); #Neutrophils 12.4 thou/uL (1.40-6.50); %Basophils 0.3 % (0.0-1.0); %Lymphocytes 12.9 % (21.0-51.0); %Monocytes 10.9 % (0.0-10.0); %Neutrophils 73.9 % (42.0-75.0); Hemoglobin 8.2 g/dL (14.0-18.0); Mean Corpuscular HGB CONC 30.1 g/dL (32.0-36.0); Mean Corpuscular Hemoglobin 27.2 pg (27.0-31.0); Mean Corpuscular Volume 90.5 fL (78.0-98.0); Mean Platelet Volume 8.2 fL (7.4-10.4); Platelet Count 381 thou/uL (130-400); RBC Distribution Width 17.2 % (11.5-14.5); Red Blood Cell (RBC) Count 3.01 mill/uL (4.70-6.10); White Blood Cell (WBC) Count 17.2 thou/uL (4.8-10.8)
[2020-09-22 04:55] LABS: Vancomycin, Random 16.5 ug/mL (See Comment)
[2020-09-22 04:57] LABS: Anion Gap 16 mmol/L (10-20); BUN (Urea Nitrogen) 26 mg/dL (8.4-25.7); Calc. Creatinine Clearance 13 mL/min (70-130); Calcium 8.9 mg/dL (7.8-10.44); Carbon Dioxide 26 mmol/L (22-29); Chloride 99 mmol/L (98-107); Glucose 97 mg/dL (70-105); Potassium 4.2 mmol/L (3.5-5.1); Sodium 137 mmol/L (136-145)
[2020-09-22] MEDS ORDERED: Vancomycin HCl 750 MG in Sodium Chloride 0.9% 250 ML 250 ML IVPB SCH (05:30)
[2020-09-22] MEDS: Mometasone 100 MCG/Formoterol 5 MCG 120 PUFF INHALER INH SCH ×2 (08:14→18:40)
[2020-09-22] MEDS: Folic Acid/Vit B Comp W-C PO SCH (08:32)
[2020-09-22] MEDS: Aspirin 81 mg Enteric Coated Tablet PO SCH (08:32)
[2020-09-22] MEDS: Calcitriol 0.25 MCG CAP PO SCH (08:32)
[2020-09-22] MEDS: levETIRAcetam 500 MG TAB PO SCH (08:32)
[2020-09-22] MEDS: Carvedilol 6.25 MG TAB PO SCH ×2 (08:32→22:26)
[2020-09-22] MEDS: Polyethylene Glycol 3350 17 GM Packet PO SCH ×2 (08:34→22:26)
[2020-09-22] MEDS: Heparin 5,000 UNITS/ML VIAL SC SCH ×2 (08:36→22:26)
[2020-09-22] MEDS: Meropenem 500 MG in Sodium Chloride 0.9% 100 ML IVPB SCH ×2 (10:34→22:27)
[2020-09-22 12:01] VITALS: BMI 29.3
[2020-09-23 04:36] LABS: #Basophils 0.1 thou/uL (0.0-0.2); #Eosinphils 0.4 thou/uL (0.0-0.7); #Lymphocytes 2.4 thou/uL (1.20-3.40); #Monocytes 1.7 thou/uL (0.11-0.59); #Neutrophils 11.2 thou/uL (1.40-6.50); %Basophils 0.8 % (0.0-1.0); %Eosinophils 2.7 % (0.0-10.0); %Monocytes 10.5 % (0.0-10.0); Hemoglobin 7.6 g/dL (14.0-18.0); Mean Corpuscular HGB CONC 31.2 g/dL (32.0-36.0); Mean Corpuscular Volume 89.8 fL (78.0-98.0); Mean Platelet Volume 7.7 fL (7.4-10.4); Platelet Count 416 thou/uL (130-400); RBC Distribution Width 17.4 % (11.5-14.5); Red Blood Cell (RBC) Count 2.72 mill/uL (4.70-6.10); White Blood Cell (WBC) Count 15.7 thou/uL (4.8-10.8)
[2020-09-23 04:52] LABS: Anion Gap 14 mmol/L (10-20); BUN (Urea Nitrogen) 35 mg/dL (8.4-25.7); Calc. Creatinine Clearance 10 mL/min (70-130); Calcium 9.5 mg/dL (7.8-10.44); Carbon Dioxide 28 mmol/L (22-29); Chloride 98 mmol/L (98-107); Glucose 93 mg/dL (70-105); Potassium 3.7 mmol/L (3.5-5.1); Sodium 136 mmol/L (136-145)
[2020-09-23] MEDS: Mometasone 100 MCG/Formoterol 5 MCG 120 PUFF INHALER INH SCH (08:22)
[2020-09-23] MEDS ORDERED: Heparin 10,000 UNITS/ 10 ML VIAL ONE (08:32)
[2020-09-23] MEDS: Carvedilol 6.25 MG TAB PO SCH ×2 (09:12→13:44)
[2020-09-23] MEDS: Heparin 5,000 UNITS/ML VIAL SC SCH ×2 (09:12→13:40)
[2020-09-23] MEDS: Polyethylene Glycol 3350 17 GM Packet PO SCH ×2 (09:13→13:45)
[2020-09-23] MEDS: Meropenem 500 MG in Sodium Chloride 0.9% 100 ML IVPB SCH (13:44)
[2020-09-23] MEDS: Aspirin 81 mg Enteric Coated Tablet PO SCH (13:44)
[2020-09-23] MEDS: Folic Acid/Vit B Comp W-C PO SCH (13:45)
[2020-09-23] MEDS: Calcitriol 0.25 MCG CAP PO SCH (13:45)
[2020-09-23 16:51] VITALS: BP 151/68; TEMP 98.5
[2020-10-11 07:12] LABS: Fungus Culture Final report (.)
== END 2020-09-23 17:10 | DRG 907 ==
LOC: ERS 12:59 → CCU 16:23 → IMCU/EMU 09-11 16:32 → 2NO 09-16 19:54
PROVIDERS: ADMIT Internal Medicine; ATTEND Internal Medicine
PROC: 3E033XZ Introduction of Vasopressor into Peripheral Vein, Percutaneous Approach (ICD-10-PCS; 2020-09-10)
PROC: 02HV33Z Insertion of Infusion Device into Superior Vena Cava, Percutaneous Approach (ICD-10-PCS; 2020-09-10)
PROC: B548ZZA Ultrasonography of Superior Vena Cava, Guidance (ICD-10-PCS; 2020-09-10)
PROC: 0WPG03Z Removal of Infusion Device from Peritoneal Cavity, Open Approach (ICD-10-PCS; principal; 2020-09-11)
PROC: 5A1D70Z Performance of Urinary Filtration, Intermittent, Less than 6 Hours Per Day (ICD-10-PCS; 2020-09-11)
PROC: 30233N1 Transfusion of Nonautologous Red Blood Cells into Peripheral Vein, Percutaneous Approach (ICD-10-PCS; 2020-09-11)
DX: T85.71XA Infection and inflammatory reaction due to peritoneal dialysis catheter, initial encounter (principal); R65.21 Severe sepsis with septic shock; N18.6 End stage renal disease; K65.2 Spontaneous bacterial peritonitis; G92 Toxic encephalopathy; A41.1 Sepsis due to other specified staphylococcus; I12.0 Hypertensive chronic kidney disease with stage 5 chronic kidney disease or end stage renal disease; E44.0 Moderate protein-calorie malnutrition; Z20.822 Contact with and (suspected) exposure to COVID-19; K81.1 Chronic cholecystitis; G40.909 Epilepsy, unspecified, not intractable, without status epilepticus; E78.5 Hyperlipidemia, unspecified; D63.1 Anemia in chronic kidney disease; R62.7 Adult failure to thrive; R13.10 Dysphagia, unspecified; Y83.1 Surgical operation with implant of artificial internal device as the cause of abnormal reaction of the patient, or of later complication, without mention of misadventure at the time of the procedure; E66.9 Obesity, unspecified; Z68.31 Body mass index [BMI] 31.0-31.9, adult; Z99.2 Dependence on renal dialysis; Z86.74 Personal history of sudden cardiac arrest; Z86.16 Personal history of COVID-19; Z79.899 Other long term (current) drug therapy; Z79.82 Long term (current) use of aspirin; Z79.51 Long term (current) use of inhaled steroids; Z68.27 Body mass index [BMI] 27.0-27.9, adult; Z82.49 Family history of ischemic heart disease and other diseases of the circulatory system; Z87.891 Personal history of nicotine dependence; L89.522 Pressure ulcer of left ankle, stage 2
CPT/HCPCS: 0240U; 36415; 36430; 36556; 51701; 70450; 71045; 71260; 74018; 74177; 76705; 78227; 80048; 80053; 80202; 82533; 82553; 83605; 83735; 83880; 84443; 84484; 85025; 85060; 86850; 86900; 86901; 87040; 87070; 87077; 87102; 87103; 87186; 87205; 87206; 87340; 90935; 93306; 96365; 96366; 96375; A9537; C9113; G0257; J0171; J0696; J1644; J1953; J2185; J2270; J2405; J2543; J2704; J3010; J3370; J3490; J7050; P9016; Q5105; Q9967; S0020